=== PATIENT | female | born 1950 | race Caucasian/White ===

== ENCOUNTER 2017-11-29 11:08 | Day surgery (SDC) | payer OTHER ==
[2017-11-28 09:55] VITALS: BMI 43.0
[2017-11-29] MEDS: KETOROLAC TROMETHAMINE 0.5% 5 ML BOTTLE OPTHALMIC ONE ×5 (11:50→12:10)
[2017-11-29] MEDS: PHENYLEPHRINE 2.5% OPHTH SOLN 15 ML BOTTLE ONE ×5 (11:50→12:10)
[2017-11-29] MEDS: CYCLOPENTOLATE HCL 1% OPHTH SOLN 2 ML BOTTLE ONE ×5 (11:50→12:10)
[2017-11-29] MEDS: TROPICAMIDE 1% OPHTH SOLN 15 ML BOTTLE ONE ×5 (11:50→12:10)
[2017-11-29] MEDS: GENTAMICIN SULFATE 0.3% OPHTHALMIC (EYE DROPS) 5ML BOTTLE ONE ×2 (11:50→12:10)
[2017-11-29] MEDS ORDERED: LIDOCAINE HCL/PF 2% SDV 5ML VIAL ONE (13:26)
[2017-11-29] MEDS ORDERED: BUPIVACAINE HCL/PF 0.5% (5MG/ML) 10 ML VIAL ONE (13:27)
[2017-11-29] MEDS ORDERED: ACETYLCHOLINE 1:100 INTRA-OCUL 20 MG/2 ML KIT ONE (13:27)
[2017-11-29] MEDS ORDERED: LIDOCAINE HCL 2% JELLY 10 ML CARTRIDGE ONE (13:27)
[2017-11-29] MEDS ORDERED: ACETAMINOPHEN 325 MG TABLET (FP) PO PRN (13:31)
[2017-11-29] MEDS ORDERED: MIDAZOLAM HCL 2 MG/2 ML SINGLE DOSE VIAL ONE (13:40)
[2017-11-29] MEDS ORDERED: PROPOFOL 20 ML ONE (13:57)
[2017-11-29] MEDS ORDERED: SUCCINYLCHOLINE CHLORIDE 200 MG/10 ML VIAL ONE (13:57)
--- NOTE | 2017-11-29 15:32 | OP ---
DATE OF OPERATION: 11/29/2017 TITLE OF PROCEDURE: Planned extracapsular cataract extraction, phacoemulsification, and insertion of posterior chamber lens implant in the right eye. SURGEON: Ben Wing MD TELEPHONE MAINTENANCE MECHANIC SURGEON: Ben Wing MD ANESTHESIA: Local with standby. ANESTHESIOLOGIST: Shane Arguelles MD COMPLICATIONS: None. PREOPERATIVE DIAGNOSIS: Cataract, right eye. POSTOPERATIVE DIAGNOSIS: Cataract, right eye. FINDINGS AND PROCEDURE: After successful peribulbar anesthesia was given into the right eye, the patient was prepped and draped in the usual manner to expose the right eye. Lid speculum was inserted. Tegaderm strips inserted. Microscope was brought into position over the exposed right eye. The patient had been prepped and draped in the usual manner. A superior fornix-based flap was then fashioned for 12 mm with Savanna scissors and 0.12 forceps. Hemostasis was achieved with electrocautery. A limbal groove was fashioned for 3 mm and dissecting anterior to clear cornea. A 3-mm blade was used to enter the anterior chamber. A Viscoat 360-degree anterior capsulotomy was performed and the leaflet removed from the eye, and phacoemulsification of the entire nucleus was done by manual technique in approximately 2 minutes' time, followed by irrigation and aspiration of all cortical material, leaving an intact posterior capsule and a red reflex present. Provisc was injected in the posterior chamber, to deepen the posterior capsule. The implant was inspected carefully with the microscope, found to be free of defects and irrigated thoroughly with BSS. The implant was folded, placed in the Provisc-filled cartridge, the cartridge in the injector, and the implant was injected into the eye so that the inferior haptic was in the inferior capsular bar and superior haptic in the superior capsular bag, and rotated in a horizontal position with the Sinskey hook. The Provisc was aspirated out, replaced with Miochol, Miostat, and BSS. The wound was closed with a single interrupted 2-0 Ethilon suture and tested for leakage, and none was found. At this point, the conjunctival tenon flap was reapproximated. At this point, the implant was fixated in the capsular bag, centrally located, with a round pupil, intact posterior capsule, and a red reflex present. Topical Betoptic S and Maxitrol ophthalmic suspensions as well as bacitracin ophthalmic ointment were placed on the eye, and then, the lids were closed. A patch and shield were placed on the eye. The patient was then discharged from the operating room to the recovery area in good condition, having tolerated the procedure well. BEN WING M.D. [id number]
[2017-11-29 15:42] VITALS: TEMP 97.6
[2017-11-29 15:44] VITALS: BP 126/78; PULSE 74
== END 2017-11-29 15:35 | disposition home or self-care (01) ==
LOC: FASU 11:08
PROVIDERS: ATTEND Ophthalmology
PROC: 08RJ3JZ Replacement of Right Lens with Synthetic Substitute, Percutaneous Approach (ICD-10-PCS; principal; 2017-11-29 14:11)
DX: H26.9 Unspecified cataract (principal)